=== PATIENT | female | born 1950 ===

== ENCOUNTER 2020-08-19 09:23 | Day surgery (SDC) | payer OTHER ==
[2020-08-19] MEDS ORDERED: IBU800 MG PO (14:31)
== END 2020-08-19 16:20 | disposition home or self-care (01) ==
LOC: CIR.AMB 09:23 → ADM 09-12 09:45
PROVIDERS: ATTEND Obstetrics & Gynecology Gynecology
DX: N84.0 Polyp of corpus uteri (principal); Z20.822 Contact with and (suspected) exposure to COVID-19